=== PATIENT | female | born 1950 | race Caucasian/White ===

== ENCOUNTER → 2017-07-15 11:23 | Outpatient (CLI) | payer OTHER, SELFPAY ==
--- NOTE | 2017-07-15 | DI.MG.S_ITS ---
BILATERAL DIGITAL SCREENING MAMMOGRAM 3D/2D WITH CAD: 07/15/2017 CLINICAL: Routine screening. Comparison is made to exam dated: 02/05/2016 mammogram - [facility]. The tissue of both breasts is extremely dense, which lowers the sensitivity of mammography. Current study was also evaluated with a Computer Aided Detection (CAD) system. No significant masses, calcifications, or other findings are seen in either breast. There has been no significant interval change. IMPRESSION: NEGATIVE There is no mammographic evidence of malignancy. A 1 year screening mammogram is recommended. This exam was interpreted at Station ID: [id number]. NOTE: For mammograms, a report in lay terms will be sent to the patient. Approximately 15% of breast malignancies will not be visualized mammographically. In the management of a palpable breast mass, a negative mammogram must not discourage biopsy of a clinically suspicious lesion. Electronically Signed By: Alyssa lin/norris:07/15/2017 13:46:28 copy to: DEBBIE STEWARD, DEBBIE STEWARD, ph: [phone] letter sent: Normal Exam ACR BI-RADS Category 1: Negative [id number]
== END ==
PROVIDERS: PCP Family Medicine; Visit Provider Family Medicine
DX: Z12.31 Encounter for screening mammogram for malignant neoplasm of breast (principal)
CPT/HCPCS: 77063; 77067

== ENCOUNTER → 2017-07-30 15:55 | Outpatient (CLI) | payer OTHER, SELFPAY ==
--- NOTE | 2017-07-30 | DI.MRI.S_ITS ---
PROCEDURE: MR HIP LT WO CON INDICATIONS: LEFT HIP PAIN TECHNIQUE: Noncontrast coronal T1 spin echo and STIR through the bony pelvis. Coronal and axial T2 fast spin echo with fat saturation, sagittal T1 spin echo, and oblique axial T2 fast spin echo with fat saturation through the hip. COMPARISON: [facility], CR, XR PELVIS WITH LATERAL HIP LEFT, 07/23/2017, 15:12. FINDINGS: Image quality: Excellent. Bones and joints: Bone marrow of the pelvic ring and proximal femurs demonstrate normal signal. No intraosseous lesions or fractures. No avascular necrosis of the femoral heads. There is moderate collar osteophytosis along the bilateral femoral head-neck junctions. A small left hip joint effusion is present. The visualized lower lumbar spine demonstrates tybg-gc-fobeodst degenerative disc disease at the presumed L4-5 level. Tendons and ligaments: The gluteus medius and minimus tendons appear intact, without associated muscle atrophy. The nearby proximal iliotibial band also appears intact. The iliopsoas tendon appears intact, without adjacent bursal fluid collections or evidence for impingement syndrome. The origin of the hamstring tendon is intact at the ischial tuberosity, as well as the associated sacrotuberous ligament. The straight and reflected heads of the rectus femoris muscle origin appear intact, as well as the conjoint tendon. The ligamentum teres appears intact where visualized. Labrum and cartilage: There is irregular degenerative tearing of the superior end anterosuperior labrum. There is moderate cartilage thinning with subchondral edema superiorly. The alpha angle of the femur is within normal limits at less than 55 degrees. Soft tissues: Visualized muscles demonstrate normal bulk and internal signal. Quadratus femoris muscle demonstrates no internal edema to suggest ischiofemoral impingement. The proximal sciatic neurovascular bundle appears normal adjacent to the hamstring tendons. No free pelvic fluid. The urinary bladder is nondistended. There is a pessary present. Visualized bowel loops appear normal in caliber. IMPRESSION: 1. Moderate osteoarthritic changes of the left hip. 2. Small left hip joint effusion. 3. Irregular degenerative tearing of the superior and anterosuperior labrum. Dictated by: Aniket Loco M.D. on 07/30/2017 at 16:44 Approved by: Aniket Loco M.D. on 07/30/2017 at 17:00
== END ==
PROVIDERS: PCP Family Medicine; Visit Provider Orthopaedic Surgery
DX: M25.552 Pain in left hip (principal); M16.12 Unilateral primary osteoarthritis, left hip; M25.452 Effusion, left hip; S73.102A Unspecified sprain of left hip, initial encounter
CPT/HCPCS: 73721

== ENCOUNTER 2017-12-25 06:06 | Inpatient (IN) | payer MEDICARE, OTHER, SELFPAY ==
[2017-12-23 13:18] VITALS: BMI 23.0
[2017-12-25] VITALS (12 sets, daily range): BP systolic 95–135; BP diastolic 57–78; PULSE 12–92; RESP 14–97; TEMP 35.8–36.7; O2SAT 95–100; BMI 22.8
--- NOTE | 2017-12-25 | DI.RAD.S_ITS ---
PROCEDURE: XR HIP W PEL IF DONE LT 2V INDICATIONS: INTRAOPERATIVE LEFT HIP TECHNIQUE: 2 view(s) of the hip acquired. COMPARISON: None. FINDINGS: Normal anatomic alignment immediately after left total hip arthroplasty. IMPRESSION: Expected normal anatomic alignment after left total hip arthroplasty. Dictated by: Jackson Bah M.D. on 12/25/2017 at 11:17 Approved by: Jackson Bah M.D. on 12/25/2017 at 11:17
--- NOTE | 2017-12-25 06:00 | DI.RAD.S_ITS ---
PROCEDURE: XR HIP W PEL IF DONE LT 2V INDICATIONS: post operative left hip TECHNIQUE: AP pelvis and lateral view of the left hip acquired. COMPARISON: [facility], MR, MR HIP LT WO CON, 07/30/2017, 16:15. [facility], CR, XR HIP W PEL IF DONE LT 2V, 12/25/2017, 9:24. FINDINGS: Bones: Patient is status post left hip arthroplasty, with hardware components in expected positions. The hip joint appears congruent. The visualized bony structures appear intact. Soft tissues: Overlying postoperative changes are noted. No suspicious soft tissue densities. IMPRESSION: Left total hip arthroplasty with prosthesis in anatomic alignment. Dictated by: Jasmina Andino M.D. on 12/25/2017 at 13:08 Approved by: Jasmina Andino M.D. on 12/25/2017 at 13:11
[2017-12-25] MEDS: LACTATED RINGERS 1,000 ML 42 ML IV ×2 (07:00→09:24)
[2017-12-25] MEDS: VANCOMYCIN 1,000 MG/200 ML FROZ.PIGGY 200 MG IV (07:02)
[2017-12-25] MEDS: PREGABALIN 75 MG CAPSULE PO (07:03)
[2017-12-25] MEDS: ACETAMINOPHEN 325 MG TABLET 975 MG PO ×3 (07:04→20:04)
[2017-12-25] MEDS: CELECOXIB 200 MG CAPSULE PO (07:04)
--- NOTE | 2017-12-25 07:41 | PM.PREOP ---
Pre-operative Note Interval Note Pre-op Check: Yes History & Physical Reviewed by Physician and Yes Exam Performed Changes: Yes
--- NOTE | 2017-12-25 07:41 | PM.OP.1 ---
Operative Date/Time/Diagnoses Date of procedure: 12/25/17 Time of procedure: 07:59 Pre-op diagnosis: Left hip osteoarthritis Post-op diagnosis: same Procedure & Clinicians Procedure: left total hip arthroplasty Same procedure as scheduled: Yes Indications: The patient has had progressively worsening left hip pain with radiographic changes consistent with arthritis. Non-operative management has failed and the patient has requested total hip replacement. The risks, benefits and alternatives to surgery were discussed with the patient prior to proceeding. Risks discussed included, but were not limited to, failure to relieve pain, leg length discrepancy, dislocation, stiffness, infection, nerve damage, deep venous thrombosis, pulmonary embolism, stroke, coma, heart attack, permanent paralysis and , as well as the potential need for eventual revision of the prosthetic. Surgeon: Fadia Henry District Claims Manager: Jacinta Kee Anesthesia Type: General and Spinal Operative Notes Findings: severe left hip osteoarthritis, adequate stability Specimen(s): none sent Implants & Drains: [employer] R3 50, 50 x32, 32 x -3, size 6 anthology so Applied: catheter Estimated Blood Loss (mL): 250 Blood products transfused: none Procedure in detail: The patient was brought to the operating room. Patient was carefully positioned in the supine position. Time-out was performed and antibiotics were given. Anesthesia was induced. She was positioned in the on the table in order to allow hyperextension of the hip. Bilateral lower extremities were prepped and draped in a standard sterile fashion. An anterior left hip incision was made 1 fingerbreadth lateral to the anterior superior iliac spine and extended distally towards the greater trochanter. Dissection was carried out through skin and subcutaneous tissues. The skin and subcutaneous tissues were carefully injected with Lidocaine with epi. Superficial hemostasis was achieved. The fascia over the tensor fascia anu was defined and incised with a knife. Two Allis clamps were used to grasp the fascia. Tensor fascia anu was retracted laterally. A gelpi retractor was placed. Dissection was carried out down along the neck. The circumflex vessels were carefully identified and cauterized with the Aqua Mantis. There was good visualization of the femoral neck. A Cobra was placed superior to the neck and the gluteus fibers were carefully stripped from that superior aspect of the capsule. A 2nd retractor was placed along the inferior aspect of the neck. The rectus insertion along the capsule was partially released. A 3rd retractor that was then gently placed over the rim of the acetabulum under the rectus. Capsule was carefully incised and released from the intertrochanteric line circumferentially superior to the mid sagittal line and inferiorly to the mid sagittal line until the lesser trochanter was palpable. A tag stitch was placed both in the superior and inferior limb of the capsular insertion. Along the acetabulum capsule was also released up to the mid sagittal 12:00 position. A portion of the labrum was resected. A saw was used to perform an osteotomy at the level of the intertrochanteric line and the junction of the superior femoral neck leaving approximately 1 finger breath of residual inferior neck above the lesser trochanter. A 2nd cut was made along the femoral neck at the base of the head and a napkin ring of neck was removed. Corkscrew was placed in the femoral head and the head was removed without difficulty. Retractors were then repositioned around the acetabulum. Residual labrum was resected and additional osteophytes were removed. A reamer that was 4 mm below the templated size was placed by hand in the acetabulum and it was reamed to centralize the acetabulum. It was then reamed up to 2 under the templated size and fluoroscopy was brought in to confirm the position of the reaming and depth of reaming. I reamed 1 under the anticipated size and touched the rim with line to line reaming. A trial cup was placed and noted that it was appropriately sized and fluoroscopy confirmed position and depth. The component was open and inserted without difficulty fluoroscopic imaging was used to confirm that the cup had been adequately seated and was well positioned. Neutral poly trial liner was placed. The cup was tested and noted to be stable. Attention was then directed to the femur. The femur was gently hyperextended additional capsular release was performed as needed in order to allow adequate visualization of the proximal femur with elevation of the femur. Patient was placed in a hyperextended slightly abducted position with maximum external rotation. Box osteotome was used to check for any residual neck as well as sclerotic bone along the trochanter. [place] pepper was placed in the femur. Additional broaching was performed. Canal finder was used to determine the alignment of the canal and position. Size 1 broach was placed. The canal was then appropriately broached up to the templated size as long as there was adequate stability of the broach and serial advancement of the broach without excessive impingement. Specific attention was directed at avoiding varus attempting to direct the distal aspect of the broach more anteriorly and avoiding excessive anteversion. Trial reduction showed acceptable range of motion, good stability, no posterior impingement, anglican of leg length and appropriate lateral shuck. I also hyperflexed the hip and checked that there was no impingement anteriorly and there was good stability with flexion, abduction and internal rotation. Final neutral poly was placed without difficulty. Marcaine and Exparel were injected.. The stem was placed without difficulty. Repeat trial reduction and x-ray showed acceptable overall position, length, and no evidence of the femoral fracture. Final head was placed. Wound was meticulously irrigated with normal saline. The hip was reduced and additional Exparel and Marcaine were injected. The capsule was closed with interrupted nonabsorbable sutures. The fascia of the tensor was closed with interrupted and running Vicryl. No drain was placed. Any tensor fascia anu muscle that appeared to be contused or injured which was a minimal amount was carefully resected. Capsule around the tensor was injected with Exparel and Marcaine. The skin was closed with barbed stitches for the subcutaneous tissue and skin. We also used surgical glue. The wound was dressed sterilely. Brief Betadine soak was also used and was meticulously irrigated with normal saline. Patient was transferred to recovery room in satisfactory condition. Complications: none Condition: stable Disposition: Acute Care Plan for aftercare: The patient will be maintained on a standard total hip replacement protocol with weight bearing as tolerated and anterior hip precautions. The patient will receive Aspirin and sequential compression devices for DVT prophylaxis. The patient will be discharged home when safe for the home environment.
[2017-12-25] MEDS: CLINDAMYCIN 900 MG/50 ML PIGGYBACK 50 MG IV (08:00)
--- NOTE | 2017-12-25 08:43 | SUR.OPER ---
Supine, head on pillow, torso on pink pad positioner. Iliac crest at flex of foot end of table. Gel roll under operative hip. Both arms secured on arm boards <90 degrees abduction.
[2017-12-25] MEDS: LIDOCAINE 1% W/EPI INJ 20 ML INJ (08:57)
[2017-12-25] MEDS: BUPIVACAINE 0.25% W/ EPI VIAL 50 ML INJ (09:16)
[2017-12-25] MEDS: BUPIVACAINE LIPOSOME 266 MG/20 ML VIAL INJ (09:17)
[2017-12-25] MEDS: POVIDONE-IODINE 15 ML, SODIUM CHLORIDE 0.9% 250 ML TOP (09:18)
[2017-12-25] MEDS: TRANEXAMIC ACID 1,000 MG VIAL 1000 MG INJ ×2 (09:20→11:06)
--- NOTE | 2017-12-25 11:51 | SUR.PHASEI ---
assumed care from daniele butts beoing done, pt arousable and in n o pain, dressing c/d/i.
--- NOTE | 2017-12-25 12:18 | SUR.PHASEI ---
report to ying.
--- NOTE | 2017-12-25 12:29 | SUR.PHASEI ---
pt left in room with ying bhardwaj in stable condition.
[2017-12-25] MEDS: LACTATED RINGERS 1,000 ML 125 ML IV ×2 (13:16→20:40)
--- NOTE | 2017-12-25 14:51 | CM.IDA ---
Discharge Planning/Care Management CM Discharge Assessment Start: 12/25/17 14:40 Freq: Status: Active Protocol: Document 12/25/17 14:40 [place] (Rec: 12/25/17 14:51 [place] [id number]) Discharge Planning Assessment Assigned Auto Garage Mechanic AV Hernández DPOA/Assigned Designee Name Woody Dawn, spouse Contact Information [phone] Advance Directives? Yes Advance Directives on File No History Provided By Patient Family Member Prior Living Arrangements House Household Members spouse Type of transporation used prior to Drives own vehicle admit Independent with ADL's Yes Is patient alert and oriented? Yes Comment More information pending DCP assessment Comment DC needs unknown at this time. Pt in the OR today for hip surgery. This PRINCIPAL DEVELOPER and therapy assessments pending pt's arrival on the medical floor. Review Status In Process
--- NOTE | 2017-12-25 15:50 | PT.IIE ---
Current Diagnoses Unilateral primary osteoarthritis, left hip (12/25/17) Surgery Performed Operation Date: 12/25/17 07:45 Actual Procedures p Total Hip Arthroplasty/Anterior Approach(Left) - Fadia Henry MD Surgical History (Last Updated 12/23/17 @ 14:16 by Elvia Kim RN) H/O colonoscopy with polypectomy (Acute) History of cervical polypectomy (Acute) History of section (Acute) Hx of laparoscopy (Acute) Medical History (Last Updated 12/23/17 @ 14:16 by Elvia Kim RN) Anemia (Acute) Anxiety (Acute) Arthritis (Acute) Asthma (Acute) BCC (basal cell carcinoma), trunk (Acute) Chronic headaches (Acute) Chronic sinusitis (Acute) Concussion (Acute) Fibromyalgia (Acute) H/O hemorrhoids (Acute) H/O insomnia (Acute) [place] (hard of hearing) (Acute) Herpes, vulvar (Acute) History of endometriosis (Acute) Hyperlipidemia (Acute) Low back pain (Acute) Spinal stenosis (Acute) Physical Therapy Inpatient Evaluation/Re-Eval M1 PT/OT-IP Prior Functional Status Start: 12/25/17 17:09 Freq: NEEDED Status: Active Protocol: Document 12/25/17 15:50 RCC (Rec: 12/25/17 17:26 RCC [id number]) Medical Review Prior Functional Status Mobility and Gait indep. gait without device Activities of Daily Living and IADL's indep. I/ADLs Social History Household Members spouse Living Arrangements House Number of Floors (Floors) One Floor Number of Stairs To Enter/Railing? 3 SE without rail Home Environment High Toilet Walk in Shower Tub/Shower Home Equipment Front Wheel Walker Straight Cane Shower Seat without Backrest Additional Social History Comment to assist upon d/c. M2 PT-IP Current Condition Start: 12/25/17 17:09 Freq: NEEDED Status: Active Protocol: Document 12/25/17 15:50 RCC (Rec: 12/25/17 17:26 RCC [id number]) Physical Therapy Current Condition Current Condition Evaluation Date 12/25/17 Treatment Diagnosis L NILESH- anterior approach, impaired mobility Onset Date 12/25/17 Precautions Anterior Hip Precautions No Hip Extension No Hip External Rotation Weight Bearing Status Weight Bearing Status Partial Weight Bearing M3 PT-IP Subjective Start: 12/25/17 17:09 Freq: NEEDED Status: Active Protocol: Document 12/25/17 15:50 RCC (Rec: 12/25/17 17:26 RCC [email or web address]) Subjective Physical Therapy Visit Type Type Initial Evaluation Visit Start Time 15:00 Visit Stop Time 15:50 Total Visit Minutes 50 Notes spouse in room during session Number of TIPPLE ENGINEER Visits 0 Physical Therapy Visit Comments Patient Comments pt denies pain; she wants to be able to go home tomorrow, catch the 12:00 pm gab Lopez tecopa. Patient Goals d/c home tomorrow in a.m. M4 PT-IP Mobility and Gait Start: 12/25/17 17:09 Freq: NEEDED Status: Active Protocol: Document 12/25/17 15:50 RCC (Rec: 12/25/17 17:26 RCC [email or web address]) PT-Bed Mobility Assessment Supine to Sit Supine to Sit Minimal Assistance 1 Person Assistance Sit to Supine Sit to Supine Minimal Assistance 1 Person Assistance Scooting Scooting to Edge of Bed Standby Assistance PT-Transfer Assessment Sit to and From Stand Sit to and from Stand Standby Assistance Equipment Transfer Assistive Device Gait Belt Front Wheeled Walker Transfers Transfer Destination Bed Toilet Transfer Technique Stand Step Pivot Transfer Ability Level of Assist Standby Assistance Gait Assessment Gait Gait Assistance Required: Standby Assistance Distance (Feet) 8 Assistive Devices Assistive Device Gait Belt Front Wheeled Walker Gait Deviations General Gait Pattern Decreased Stride Length Decreased Feet Clearance Step-to Gait Factors Limiting Gait Function Factors Limiting Gait Function Decreased Activity Tolerance Decreased Strength PT-Balance Assessment Sitting Balance and Reactions Static Sitting Balance Ability Good Dynamic Sitting Balance Ability Good Standing Balance and Reactions Static Standing Balance Ability Good Dynamic Standing Balance Ability Fair Device Used FWW M5 PT-IP Objective Assessments Start: 12/25/17 17:09 Freq: NEEDED Status: Active Protocol: Document 12/25/17 15:50 RCC (Rec: 12/25/17 17:26 RCC [id number]) Orientation Orientation/Cognition Level of Alertness Alert Strength Comments Strength Comments no MMT to LLE due to surgery, required Min A for SLR on the LLE. Coordination Assessment Gross Coordination Gross Coordination WNL Sensation Assessment Sensation Gross Sensation WNL Light Touch Intact M6 PT-IP Treatment Start: 12/25/17 17:09 Freq: NEEDED Status: Active Protocol: Document 12/25/17 15:50 RCC (Rec: 12/25/17 17:26 RCC [email or web address]) Physical Therapy Treatment Education Education Provided Precautions Weight Bearing Status Post-Op Packet Safety Other Treatments Other Treatment Performed BP 122/71 supine, 118/73 sitting. Pt had 175 cc urine output with transfer to BSC, and 300 cc emesis (clear liquid)- note left for ASSISTANT CASE MANAGER M7 PT-IP Assessment and Plan Start: 12/25/17 17:09 Freq: NEEDED Status: Active Protocol: Document 12/25/17 15:50 RCC (Rec: 12/25/17 17:26 RCC [id number]) PT Summary Assessment and Plan Potential Rehabilitation Potential Excellent Status of Condition at Evaluation Stable Summary Impairments Pain ROM Strength Balance Bed Mobility Transfers Gait Activity Tolerance Assessment Summary Same day post-op L NILESH with anterior approach. Pt limited this session due to feeling poorly, emesis while using BSC . Pt's BP was stable throughout, no c/o dizziness but does admit to feeling a little poorly. Pt required manual assistance to get in/ out of bed and with LLE management. FWW was sized to fit pt most properly, although still likely taller than ideal for the pt's stature. Expect pt to be able to d/c home when medically stable, but will require further assessment tomorrow on if POD #1 is safe for d/c plan vs. POD #2. Will continue to monitor. Goals Bed Mobility Goal Standby Assistance Transfer Goal Standby Assistance Gait Goal Standby Assistance Gait Distance 150 Other Goals up/down 2 steps with SPC and CGA Days to Meet Goals 2 Frequency of Treatment Frequency Of Treatment Twice a Day Treatment Plan Physical Therapy Treatment Plan Bed Mobility Training Transfer Training Gait Training Therapeutic Exercise Balance Retraining Post Op Education Discharge Planning Hot or Cold Pack Neuromuscular Re-ed Other Recommendations and Next Treatment prog. bed moblity, gait, stair Focus and CG training tomorrow in a .m. for potential d/c to catch 12 a.m. gab Recommendations To Nursing Amount of Assist Needed 1 Person Assist Discharge Recommendations PT Discharge Recommendations Home with Assistance Outpatient PT
[2017-12-25] MEDS: DOCUSATE 100 MG CAPSULE PO (20:04)
[2017-12-25] MEDS: ONDANSETRON 4 MG/2 ML INJ IV (20:04)
[2017-12-25] MEDS: ASPIRIN EC 81 MG TABLET PO (20:04)
[2017-12-26 04:00] VITALS: BP 103/68; PULSE 76; RESP 16; TEMP 36.6; O2SAT 99
[2017-12-26] MEDS: LACTATED RINGERS 1,000 ML 125 ML IV (04:57)
[2017-12-26] MEDS: VANCOMYCIN 1,000 MG/200 ML FROZ.PIGGY 200 MG IV (06:13)
[2017-12-26 06:52] LABS: Hematocrit 31.3 % (36-46)
--- NOTE | 2017-12-26 07:11 | PM.DS.1 ---
History of Present Illness Date Patient Seen: 12/26/17 Chief complaint: [id number] LEFT TOTAL HIP ARTHROPLASTY Narrative: Patient seen bedside s/p L. anterior NILESH POD #1. Patient is doing well, she has not yet worked with PT. Her pain is well controlled. Discharge Providers Date of admission: 12/25/17 06:06 Primary care physician: Aroldo Ly MD Consults: 12/25/17 06:00 Consult to Anesthesiology Routine Comment: Consulting Provider: Anesthesiologist Reason for consultation: Regional block for post operative pain control 12/25/17 12:23 Consult to Discharge Planning Routine Comment: Consult to Physical Therapy Evaluate & Treat Comment: ANTERIOR Physician Instructions: post op NILESH protocol Consult to Respiratory Therapy Evaluate & Treat Comment: Physician Instructions: Evaluate and treat Discharge provider: Jacinta Kee PA-C Discharge Date: 12/26/17 Summary Discharge Diagnosis: Left hip osteoarthritis Hospital Course: Patient was admitted to the hospital s/p L. anterior NILESH on 12/25/17. Patient tolerated the procedure well with no major complications. She was transferred to the acute care floor where she was placed on the standard joint replacement pathway and protocol. She was seen by PT who recommended that she be discharged home with outpatient PT. Patient was stable and ready for discharge on 12/26/17. Status at Discharge Cognitive/behavioral status at discharge: Alert & oriented x3 Functional status at discharge: uses cane/walker Overall status at discharge: patient is progressing back to baseline Time Spent with Patient Less than 30 minutes Exam Vital Signs (past 8 hours): - 12/25/17 23:15 12/26/17 04:00 Temperature 97.6 F 97.9 F Pulse Rate 71 76 Respiratory Rate 16 16 Blood Pressure 106/57 L 103/68 Pulse Oximetry 98 99 Oxygen Delivery Method Room Air Oxygen Flow Rate 0 Narrative Exam Narrative: WDWN NAD A&Ox3. Patient's surgical dressing is CDI with no signs of discharge. Calf is soft and compressible. Minimal erythema and edema surrounding the incision. ROM of the foot and ankle intact. No focal deficits noted. Objective Labs Result Diagrams: 12/26/17 06:30 Labs: Laboratory Results - last 24 hr 12/26/17 06:30 Hgb 11.0 L Hct 31.3 L Discharge Plan Discharge Plan Patient Disposition: Home Discharge Med Rec/Prescriptions Prescriptions: New acetaminophen 325 mg Tablet 975 mg PO TID Qty: 0 RF: 0 aspirin 81 mg Tablet,Delayed Release (Dr/Ec) 81 mg PO BID Qty: 0 RF: 0 docusate sodium 100 mg Capsule 100 mg PO BID Qty: 0 RF: 0 oxycodone 5 mg Tablet 5 mg PO Q4H PRN (Reason: Pain, Moderate (4-6)) Qty: 0 RF: 0 meloxicam [Mobic] 7.5 mg Tablet 15 mg PO 0800 Qty: 0 RF: 0 hydroxyzine pamoate 25 mg Capsule 25 mg PO Q4HR PRN (Reason: Muscle Spasm) Qty: 0 RF: 0 ondansetron HCl [Zofran] 4 mg tablet 4 mg PO Q6-8H PRN (Reason: nausea and vomiting) Qty: 10 RF: 0 Continue estradiol [Estrace] 0.01 % cream 1 gm Vaginal QWEEK Qty: 0 RF: 0 estradiol [Estring] 2 mg (7.5 mcg /24 hour) Ring 1 vag ring VAGINAL [id number] RF: 0 Discontinued ibuprofen 400 mg Tablet 400 mg PO BID RF: 0 Follow up/Referrals: Aroldo Ly MD [Primary Care Provider] - Provider Discharge Instructions Diet: Diet as Tolerated Activity: Weightbearing as tolerated, follow anterior hip precautions, use walker until cleared by PT Cold/Heat Therapy: Apply ice 20 minutes at a time while awake to operative site Skin/Wound/Dressing Care Report to your healthcare provider any signs of infection, such as:: chills, fever, night sweats, increased pain and unusual drainage Dressing: Keep surgical dressing clean, dry, and intact. May shower with dressing in place. Visit Report/Discharge Packet Instructions: DI for Hip Replacement Visit Report Forms: Stroke Signs & Symptoms Discharge Data Primary Care Provider: Aroldo Ly Attending Provider: Fadia Henry Admit Date/Time: 12/25/17 06:06 Discharges patient from system. Discharge Date/Time: 12/26/17 14:32
[2017-12-26] MEDS: ONDANSETRON 4 MG ODT PO ×2 (07:54→11:37)
[2017-12-26 08:00] VITALS: BP 115/67; PULSE 64; RESP 17; TEMP 36.7; O2SAT 100
[2017-12-26 08:30] VITALS: BP 117/64; PULSE 66
[2017-12-26] MEDS: MELOXICAM 7.5 MG TABLET 15 MG PO (09:12)
[2017-12-26] MEDS: ASPIRIN EC 81 MG TABLET PO (09:13)
[2017-12-26] MEDS: DOCUSATE 100 MG CAPSULE PO (09:13)
[2017-12-26] MEDS: ACETAMINOPHEN 325 MG TABLET 975 MG PO ×2 (09:13→14:06)
[2017-12-26 11:14] VITALS: BP 124/65; PULSE 66; RESP 16; TEMP 36.7; O2SAT 98
--- NOTE | 2017-12-26 11:58 | PT.IPTN ---
Current Diagnoses Unilateral primary osteoarthritis, left hip (12/25/17) Surgery Performed Operation Date: 12/25/17 07:45 Actual Procedures p Total Hip Arthroplasty/Anterior Approach(Left) - Fadia Henry MD Physical Therapy Treatment Note M2 PT-IP Current Condition Start: 12/25/17 17:09 Freq: NEEDED Status: Active Protocol: Document 12/25/17 15:50 RCC (Rec: 12/25/17 17:26 RCC [email or web address]) Physical Therapy Current Condition Current Condition Evaluation Date 12/25/17 Treatment Diagnosis L NILESH- anterior approach, impaired mobility Onset Date 12/25/17 Precautions Anterior Hip Precautions No Hip Extension No Hip External Rotation Weight Bearing Status Weight Bearing Status Partial Weight Bearing M3 PT-IP Subjective Start: 12/25/17 17:09 Freq: NEEDED Status: Active Protocol: Document 12/26/17 09:15 GGD (Rec: 12/26/17 11:58 GGD [id number]) Subjective Physical Therapy Visit Type Type Treatment Note Visit Start Time 08:50 Visit Stop Time 09:15 Total Visit Minutes 25 Number of OBSTETRICAL NURSE Visits 1 Physical Therapy Visit Comments Patient Comments Pt states she hope to go home today. Therapy Pain Assessment Pain When Pain Assessed At Rest Pain Present Pain Present Pain Reported Location Left Hip Intensity 3 Scale Used Numeric (1 - 10) M4 PT-IP Mobility and Gait Start: 12/25/17 17:09 Freq: NEEDED Status: Active Protocol: Document 12/26/17 09:15 GGD (Rec: 12/26/17 11:58 GGD [id number]) PT-Bed Mobility Assessment Supine to Sit Supine to Sit Contact Guard Assistance Sit to Supine Sit to Supine Contact Guard Assistance Scooting Scooting to Edge of Bed Standby Assistance PT-Transfer Assessment Sit to and From Stand Sit to and from Stand Contact Guard Assistance Equipment Transfer Assistive Device Gait Belt Front Wheeled Walker Orthotic/Prosthetic Devices or Brace: No Transfers Transfer Destination Bed Transfer Ability Level of Assist Contact Guard Assistance Use of Upper Extremities Comments Mobility Comments BP supine 106/61, sitting 117/ 40, standing 111/54. pt C/O light headiness with standing. M5 PT-IP Objective Assessments Start: 12/25/17 17:09 Freq: NEEDED Status: Active Protocol: Document 12/25/17 15:50 RCC (Rec: 12/25/17 17:26 RCC [email or web address]) Orientation Orientation/Cognition Level of Alertness Alert Strength Comments Strength Comments no MMT to LLE due to surgery, required Min A for SLR on the LLE. Coordination Assessment Gross Coordination Gross Coordination WNL Sensation Assessment Sensation Gross Sensation WNL Light Touch Intact M6 PT-IP Treatment Start: 12/25/17 17:09 Freq: NEEDED Status: Active Protocol: Document 12/26/17 09:15 GGD (Rec: 12/26/17 11:58 GGD [id number]) Physical Therapy Treatment Exercises Exercises Ankle Pumps Education Education Provided Precautions M7 PT-IP Assessment and Plan Start: 12/25/17 17:09 Freq: NEEDED Status: Active Protocol: Document 12/26/17 09:15 GGD (Rec: 12/26/17 11:58 GGD [id number]) PT Summary Assessment and Plan Summary Assessment Summary Pt had increase in light headiness standing. She wasn't safe for transfer or gait dues to low BP. She improved with bed mobility. Pt unable to ambulate or do stair training. Pt should be able to D/C home when medically stable. Frequency of Treatment Frequency Of Treatment Twice a Day Treatment Plan Physical Therapy Treatment Plan Bed Mobility Training Transfer Training Gait Training Therapeutic Exercise Balance Retraining Post Op Education Discharge Planning Hot or Cold Pack Neuromuscular Re-ed Other Recommendations and Next Treatment prog. bed moblity, gait, stair Focus and CG training Discharge Recommendations PT Discharge Recommendations Home with Assistance Outpatient PT
--- NOTE | 2017-12-26 12:53 | PT.IPTN ---
Current Diagnoses Unilateral primary osteoarthritis, left hip (12/25/17) Surgery Performed Operation Date: 12/25/17 07:45 Actual Procedures p Total Hip Arthroplasty/Anterior Approach(Left) - Fadia Henry MD Physical Therapy Treatment Note M2 PT-IP Current Condition Start: 12/25/17 17:09 Freq: NEEDED Status: Active Protocol: Document 12/25/17 15:50 RCC (Rec: 12/25/17 17:26 RCC [email or web address]) Physical Therapy Current Condition Current Condition Evaluation Date 12/25/17 Treatment Diagnosis L NILESH- anterior approach, impaired mobility Onset Date 12/25/17 Precautions Anterior Hip Precautions No Hip Extension No Hip External Rotation Weight Bearing Status Weight Bearing Status Partial Weight Bearing M3 PT-IP Subjective Start: 12/25/17 17:09 Freq: NEEDED Status: Active Protocol: Document 12/26/17 12:47 GGD (Rec: 12/26/17 12:53 GGD [email or web address]) Subjective Physical Therapy Visit Type Type Treatment Note Visit Start Time 12:15 Visit Stop Time 12:45 Total Visit Minutes 30 Number of SENIOR TAX ANALYST Visits 2 Physical Therapy Visit Comments Patient Comments Pt states she is feeling better. Therapy Pain Assessment Pain When Pain Assessed At Rest Pain Present Pain Present Pain Reported Location Left Hip Intensity 2 Scale Used Numeric (1 - 10) M4 PT-IP Mobility and Gait Start: 12/25/17 17:09 Freq: NEEDED Status: Active Protocol: Document 12/26/17 12:47 GGD (Rec: 12/26/17 12:53 GGD [email or web address]) PT-Bed Mobility Assessment Supine to Sit Supine to Sit Contact Guard Assistance Sit to Supine Sit to Supine Contact Guard Assistance Scooting Scooting to Edge of Bed Standby Assistance PT-Transfer Assessment Sit to and From Stand Sit to and from Stand Contact Guard Assistance Equipment Transfer Assistive Device Gait Belt Front Wheeled Walker Orthotic/Prosthetic Devices or Brace: No Transfers Transfer Destination Bed Transfer Ability Level of Assist Contact Guard Assistance Use of Upper Extremities Comments Mobility Comments BP supine 105/63, sitting 111/ 62, standing 107/60. Gait Assessment Gait Gait Assistance Required: Standby Assistance Distance (Feet) 80 Able to Maintain Weight Bearing Status Yes During Gait Assistive Devices Assistive Device Gait Belt Front Wheeled Walker Gait Deviations General Gait Pattern Decreased Stride Length Decreased Feet Clearance Step-to Gait Factors Limiting Gait Function Factors Limiting Gait Function Decreased Strength Pain Stair Climbing Assessment Evaluation Level of Assist On Stairs Minimal Assistance 1 Person Assistance Devices Stair Climbing Assistive Devices Straight Cane Technique/Endurance Stair Climbing Direction Ascend and Descend Stair Climbing Technique Step to Step Number of Steps Climbed 3 Query Text: Stair Climbing Set # Repetitions (reps) 2 Comments Stair Climbing Comments SPC in right hand and hand hold on left hand, family training for stair mobility. M5 PT-IP Objective Assessments Start: 12/25/17 17:09 Freq: NEEDED Status: Active Protocol: Document 12/25/17 15:50 RCC (Rec: 12/25/17 17:26 RCC [email or web address]) Orientation Orientation/Cognition Level of Alertness Alert Strength Comments Strength Comments no MMT to LLE due to surgery, required Min A for SLR on the LLE. Coordination Assessment Gross Coordination Gross Coordination WNL Sensation Assessment Sensation Gross Sensation WNL Light Touch Intact M6 PT-IP Treatment Start: 12/25/17 17:09 Freq: NEEDED Status: Active Protocol: Document 12/26/17 12:47 GGD (Rec: 12/26/17 12:53 GGD [email or web address]) Physical Therapy Treatment Exercises Exercises Ankle Pumps Education Education Provided Precautions M7 PT-IP Assessment and Plan Start: 12/25/17 17:09 Freq: NEEDED Status: Active Protocol: Document 12/26/17 12:47 GGD (Rec: 12/26/17 12:53 GGD [email or web address]) PT Summary Assessment and Plan Summary Assessment Summary Pt improved with mobility. She had no C/O dizziness and stable BP. She was safe and stable with gait. She was safe with stair mobility and family was able to assist safely. Frequency of Treatment Frequency Of Treatment Twice a Day Treatment Plan Other Recommendations and Next Treatment prog. bed moblity, gait, stair Focus and CG training Recommendations To Nursing Amount of Assist Needed 1 Person Assist Discharge Recommendations PT Discharge Recommendations Home with Assistance Outpatient PT
--- NOTE | 2017-12-26 14:31 | PC.NURSE ---
patient tolerated lunch, ate well, drinking fluids well. no nausea when pre-medicated for meal w/ zofran. script for zofran filled by dtr prior to dc home. priority boarding pass provided. cleared by physical therapy. left for w/ dc paperwork and all belongings w/ spouse to drive her home.
--- NOTE | 2017-12-26 14:37 | CM.DPC ---
DCP Cont: Met w/pt and her family at bedside, explained role. Pt is hopeful she can DC home today but had a medical event this morning that made PA/RN question her stability for home. PT= Home w/family and outpt PT. Pt has planned to get home, has spouse and other family/friends available to assist [place] The physical therapist she sees can visit her home for the first visit or two until pt is confident about getting to the clinic. No needs indicated from this DAIRY FEED SALES CONSULTANT. Pt and family appreciative of the visit. P: DC home w/family and outpt PT. Ivon Levy, DAIRY FEED SALES CONSULTANT
== END 2017-12-26 14:32 | disposition home or self-care (01) | DRG 470 ==
PROVIDERS: Admitting Provider Orthopaedic Surgery; PCP Family Medicine; Visit Provider Orthopaedic Surgery
PROC: 0SRB02Z Replacement of Left Hip Joint with Metal on Polyethylene Synthetic Substitute, Open Approach (ICD-10-PCS; CPT 27130; principal; 2017-12-25 07:45)
DX: M16.12 Unilateral primary osteoarthritis, left hip (principal); E78.5 Hyperlipidemia, unspecified; M79.7 Fibromyalgia; Z87.891 Personal history of nicotine dependence
CPT/HCPCS: 36415; 73502; 76001; 85014; 85018; 94762; 97116; 97161; 97530; C1776; C9290; J2250; J2274; J2405; J2704; J3010; J3370

== ENCOUNTER 2017-12-29 21:59 | Observation (INO) | payer MEDICARE, OTHER, SELFPAY ==
[2017-12-25 12:30] VITALS: BMI 22.8
[2017-12-29 22:04] VITALS: BMI 23.4
[2017-12-29 23:40] VITALS: BP 131/74; PULSE 77; RESP 16; TEMP 36.6; O2SAT 98
--- NOTE | 2017-12-29 23:48 | PM.HP.1 ---
History of Present Illness Date Patient Seen: 12/29/17 Time Patient Seen: 23:48 Chief complaint: HYPONATRIEMIA,POSSIBLE POSTOP INFECTION Narrative: 67-year-old female who was transferred from [facility] Emergency Room for hyponatremia and concern of possible postoperative infection. She recently had left total hip arthroplasty by Dr. Henry 5 days ago. She was discharged home. She has been feeling thirsty and was drinking large amount of water. She also has been constipated. She used MiraLax this morning. She drank about 6 court of water within a few hours. She fell ill in the afternoon. She went to her primary care clinic. She was found to have low sodium and potassium. She was airlifted to [facility] Emergency Room. She was found to have sodium of 126. Her potassium was 3.5. She also was noticed to have soft tissue erythema and warmth on the left lateral thigh. There was concern of possible infection. She was transferred to [facility] for further management. Patient denies fevers and chills. She has been feeling thirsty in the past few days. She was drinking large amount of water. Patient History Medical History Anemia (Acute) Anxiety (Acute) Arthritis (Acute) Asthma (Acute) BCC (basal cell carcinoma), trunk (Acute) Chronic headaches (Acute) Chronic sinusitis (Acute) Concussion (Acute) Fibromyalgia (Acute) H/O hemorrhoids (Acute) H/O insomnia (Acute) [place] (hard of hearing) (Acute) Herpes, vulvar (Acute) History of endometriosis (Acute) Hyperlipidemia (Acute) Low back pain (Acute) Spinal stenosis (Acute) Surgical History H/O colonoscopy with polypectomy (Acute) History of cervical polypectomy (Acute) History of section (Acute) Hx of laparoscopy (Acute) Family & Social History Family History: Reviewed 12/29/17 by Zeina Solomon MD Social History: household members spouse Prior Living Arrangements House Safety & Behavioral: Feels Safe in Current Yes Environment Been Physically Hurt or No Threatened By a Person Suicidal Ideation Description None Suicide Plan Description No Plan Tobacco & Substance use: Tobacco type cigarettes Smoking Status Former smoker alcohol intake current alcohol intake frequency holiday/special occasion Substance Use Type does not use Meds Home Medications Medication Instructions Recorded Confirmed Type estradiol [Estrace] 1 gm VAGINAL QWEEK #0 10/04/15 12/29/17 History estradiol [Estring] 1 vag ring VAGINAL [id number] 12/23/17 12/29/17 History aspirin 81 mg PO BID #0 tab 12/26/17 12/29/17 Rx docusate sodium 100 mg PO BID #0 cap 12/26/17 12/29/17 Rx hydroxyzine pamoate 25 mg PO Q4HR PRN #0 cap 12/26/17 12/29/17 Rx meloxicam [Mobic] 15 mg PO 0800 #0 tab 12/26/17 12/29/17 Rx ondansetron HCl [Zofran] 4 mg PO Q6-8H PRN #10 tab 12/26/17 12/29/17 Rx oxycodone 5 mg PO Q4H PRN #0 tab 12/26/17 12/29/17 Rx acetaminophen 500 mg PO Q4H 12/29/17 12/29/17 History Allergies Allergy/AdvReac Type Severity Reaction Status Date / Time Penicillins Allergy Severe Anaphylaxis Verified 12/25/17 06:50 Tetracyclines Allergy Severe RASH/HIVES Verified 12/25/17 06:50 amoxicillin [From AUGMENTIN] Allergy Intermediate RASH/HIVES Verified 12/25/17 06:50 clavulanic acid Allergy Intermediate RASH/HIVES Verified 12/25/17 06:50 [From AUGMENTIN] Review of Systems Constitutional Comments: Denies fevers chills of sweats Cardiovascular Comments: Denies chest pain Respiratory Comments: Denies cough or shortness of breath. Gastrointestinal Gastrointestinal: Reports constipation Comments: No abdominal pain Genitourinary Comments: No dysuria Musculoskeletal Musculoskeletal: Reports arthralgias Exam Narrative Exam Narrative: GENERAL: Middle-aged woman in no acute distress. HEENT: Head normocephalic, atraumatic. Eyes pupils equal round NECK: Supple, no JVD, CHEST: Breath sounds equal bilaterally, no wheezes rales or rhonchi. CARDIAC: Regular rate and rhythm without murmurs, rubs or gallops. ABDOMEN: Soft, nontender. Normoactive bowel sounds all 4 quadrants. No guarding or rebound. EXTREMITIES: Normal range of motion, left lateral hip has mild soft tissue erythema and swelling. It was slightly warm to touch. NEUROLOGICAL: Alert and oriented; Normal muscle strength. SKIN: Warm, dry, no petechiae, no rashes or lesions. Assessment & Plan Plan: Assessment/Plan Narrative: 1. Acute hyponatremia: Likely secondary to the use of MiraLax and excessive free water drinking in the past few days. We will start her on free water restriction. She Has no signs of fluid overload on physical exam. I will start her on normal saline IV at 100 cc an hour. We will recheck her electrolytes in the morning. 2. Hypokalemia: Likely secondary to decreased oral intake and use of laxatives. We will continue monitor. Replace as needed. 3. Recent left total hip arthroplasty: She has mild soft tissue swelling and erythema. She does not have fevers or chills. Her white blood cell count was also normal. She received 1 dose of antibiotics at [facility]. I have low clinical suspicion for postoperative infection. We will continue monitor. Consider orthopedics consultation in the morning for evaluation. Quality VTE Deep Vein Thrombosis/Pulmonary Embolism Present on Admission: No
[2017-12-30 00:30] VITALS: O2SAT 98
[2017-12-30] MEDS: SODIUM CHLORIDE 0.45% 1,000 ML 100 ML IV (00:32)
[2017-12-30] MEDS: ASPIRIN EC 81 MG TABLET PO ×2 (00:41→08:29)
[2017-12-30] MEDS: ACETAMINOPHEN 325 MG TABLET 650 MG PO ×2 (00:41→06:38)
[2017-12-30 03:38] VITALS: BP 128/65; PULSE 77; RESP 18; TEMP 36.6; O2SAT 97
[2017-12-30 06:40] LABS: Add Manual Diff / Slide Review NO; Basophils Percent Auto 0.3 % (0-2); Eosinophils Percent Auto 1.4 % (2-4); Hemoglobin 11.2 g/dL (12.0-16.0); Lymphocytes Percent Auto 19.2 % (25-40); Mean Corpuscular HGB Conc 35.1 % (30-36); Mean Corpuscular Hemoglobin 29.4 PG (26-34); Mean Corpuscular Volume 83.6 fL (80-100); Monocytes Percent Auto 13.6 % (3-14); Neutrophils Absolute Auto 3400 /uL (3000-5900); Neutrophils Percent Auto 65.5 % (50-75); Platelet Count 240 X10^3/uL (150-400); Red Blood Cell Count 3.83 X10^6/uL (4.0-5.2); Red Cell Distribution Width 13.7 % (11.6-14.8); White Blood Cell Count 5.2 X10^3/uL (4.5-11.0)
[2017-12-30 06:41] LABS: Blood Urea Nitrogen 4 mg/dL (7-17); Calcium 8.6 mg/dL (8.4-10.2); Carbon Dioxide 29 mmol/L (22-32); Chloride 103 mmol/L (98-107); Estimated Glomerular Filt Rate > 60.0 mL/min (>60); Glucose 108 mg/dL (80-110); HEMOLYSIS < 15 (0-50); Potassium 4.2 mmol/L (3.4-5.1); Sodium 142 mmol/L (137-145)
--- NOTE | 2017-12-30 07:06 | PC.NURSE ---
12/30 07:06 pt alert and oriented x4, ROSEBUD, vss on RA, pain controlled with 650mg tylenol q6, requesting to get back on anti-inflammatory. walked around [place] twice this shift. States to be feeling much better, fluid restriction maintained this shift.
[2017-12-30 08:25] VITALS: BP 124/53; PULSE 85; RESP 16; TEMP 36.7; O2SAT 99
[2017-12-30] MEDS: DOCUSATE 100 MG CAPSULE PO (08:29)
[2017-12-30 10:11] VITALS: O2SAT 96
--- NOTE | 2017-12-30 10:54 | CM.DANOTE ---
DCP: Case received, EMR reviewed and met with patient. Introduced self and role. DCP template completed with information currently available. Patient is a 67 year old female who admitted yesterday evening, and was transferred via cabulence from [facility] in [place]. Patient was admitted to the care of the hospitalist team. PCP: Dr. Ly. Payer: confirmed: Medicare/[facility]. Patient carries diagnosis of Hyponatremia. Patient presented symptoms of increased thirst. Patient was originally sent to [facility], who transported here to [facility], for patient had recent left total hip arthroplasty done here. Patient alert and oriented. Lives on [address] with spouse. Does use a walker at home, since she had recent surgery. She is hoping to get discharged today, so [place] catch ferry. P: DCP to continue to follow. Patient should be able to return home when her sodium level is stable. Julisa Silvestre RN/Charter Boat Operator
[2017-12-30] MEDS: IBUPROFEN 400 MG TABLET PO (12:24)
--- NOTE | 2017-12-30 12:50 | P.PN_ITS ---
Subjective Date Patient Seen: 12/30/17 Time Patient Seen: 07:48 Interval history: POD #5 status post left total hip arthroplasty done anterior approach with Dr. Henry. Patient was transferred from [facility] Emergency Room for hyponatremia and concern of possible postoperative infection. She was put on IV antibiotics while at [facility]. Patient has not felt febrile. No chills, or drainage from incision. Exam Vital Signs (past 8 hours): - 12/30/17 08:25 12/30/17 10:11 Temperature 98.1 F Pulse Rate 85 Respiratory Rate 16 Blood Pressure 124/53 L Pulse Oximetry 99 96 Oxygen Delivery Method Room Air Narrative Exam Narrative: Patient lying in bed in no acute distress. She is alert and oriented x3. Dressing on left hip is CDI. Dressing removed and incision inspected. There is no signs of redness, wound dehiscence, or infection. Calves are soft, compressible, nontender bilaterally. Sensation intact to light touch throughout bilateral lower extremities. Pulses are symmetrical. Objective Labs Result Diagrams: 12/30/17 06:13 12/30/17 06:13 Labs: Laboratory Results - last 24 hr 12/30/17 12/30/17 06:13 06:13 WBC 5.2 RBC 3.83 L Hgb 11.2 L Hct 32.0 L MCV 83.6 MCH 29.4 MCHC 35.1 RDW 13.7 Plt Count 240 Neut % (Auto) 65.5 Lymph % (Auto) 19.2 L Bibb % (Auto) 13.6 Eos % (Auto) 1.4 L Baso % (Auto) 0.3 Neut # (Auto) 3400 Sodium 142 Potassium 4.2 Chloride 103 Carbon Dioxide 29 BUN 4 L Creatinine 0.50 L Estimated GFR > 60.0 BUN/Creatinine Ratio 8.0 Glucose 108 Calcium 8.6 Assessment & Plan Post-op (1) Hyponatremia: Current Visit: Yes Status: Acute (2) S/P total hip arthroplasty: Problem details: She is to continue her anterior hip precautions. Continue with physical therapy. There are no concerns for postoperative infection at this time. She will follow up with our office as scheduled. Current Visit: Yes Status: Acute Quality VTE Deep Vein Thrombosis/Pulmonary Embolism Present on Admission: No
--- NOTE | 2017-12-30 13:30 | P.CONS_ITS ---
History of Present Illness Date Patient Seen: 12/30/17 Time Patient Seen: 13:28 Chief complaint: HYPONATRIEMIA,POSSIBLE POSTOP INFECTION Reason for consult: Status post total hip arthroplasty readmitted for hyponatremia Narrative: Patient who is status post a total hip arthroplasty done on the 25 of December readmitted due to hyponatremia. Patient is not having any issues in regards to the hip. [facility] Medical History Anemia (Acute) Anxiety (Acute) Arthritis (Acute) Asthma (Acute) BCC (basal cell carcinoma), trunk (Acute) Chronic headaches (Acute) Chronic sinusitis (Acute) Concussion (Acute) Fibromyalgia (Acute) H/O hemorrhoids (Acute) H/O insomnia (Acute) [place] (hard of hearing) (Acute) Herpes, vulvar (Acute) History of endometriosis (Acute) Hyperlipidemia (Acute) Low back pain (Acute) Spinal stenosis (Acute) Surgical History H/O colonoscopy with polypectomy (Acute) History of cervical polypectomy (Acute) History of section (Acute) Hx of laparoscopy (Acute) Family History: Reviewed 12/29/17 by Zeina Solomon MD Social History household members: spouse Smoking Status: Former smoker alcohol intake: current Meds Home Medications Medication Instructions Recorded Confirmed Type estradiol [Estrace] 1 gm VAGINAL QWEEK #0 10/04/15 12/29/17 History estradiol [Estring] 1 vag ring VAGINAL [id number] 12/23/17 12/29/17 History aspirin 81 mg PO BID #0 tab 12/26/17 12/29/17 Rx docusate sodium 100 mg PO BID #0 cap 12/26/17 12/29/17 Rx hydroxyzine pamoate 25 mg PO Q4HR PRN #0 cap 12/26/17 12/29/17 Rx meloxicam [Mobic] 15 mg PO 0800 #0 tab 12/26/17 12/29/17 Rx ondansetron HCl [Zofran] 4 mg PO Q6-8H PRN #10 tab 12/26/17 12/29/17 Rx oxycodone 5 mg PO Q4H PRN #0 tab 12/26/17 12/29/17 Rx acetaminophen 500 mg PO Q4H 12/29/17 12/29/17 History Allergies Allergy/AdvReac Type Severity Reaction Status Date / Time Penicillins Allergy Severe Anaphylaxis Verified 12/25/17 06:50 Tetracyclines Allergy Severe RASH/HIVES Verified 12/25/17 06:50 amoxicillin [From AUGMENTIN] Allergy Intermediate RASH/HIVES Verified 12/25/17 06:50 clavulanic acid Allergy Intermediate RASH/HIVES Verified 12/25/17 06:50 [From AUGMENTIN] Exam Vital Signs (past 8 hours): - 12/30/17 08:25 12/30/17 10:11 Temperature 98.1 F Pulse Rate 85 Respiratory Rate 16 Blood Pressure 124/53 L Pulse Oximetry 99 96 Oxygen Delivery Method Room Air Narrative Exam Narrative: Patient's incision is healing well. No sign of any wound dehiscence. No sign of any wound infection. No sign of any postsurgical complications. Objective Labs Result Diagrams: 12/30/17 06:13 12/30/17 06:13 Labs: Laboratory Results - last 24 hr 12/30/17 12/30/17 06:13 06:13 WBC 5.2 RBC 3.83 L Hgb 11.2 L Hct 32.0 L MCV 83.6 MCH 29.4 MCHC 35.1 RDW 13.7 Plt Count 240 Neut % (Auto) 65.5 Lymph % (Auto) 19.2 L [place] % (Auto) 13.6 Eos % (Auto) 1.4 L Baso % (Auto) 0.3 Neut # (Auto) 3400 Sodium 142 Potassium 4.2 Chloride 103 Carbon Dioxide 29 BUN 4 L Creatinine 0.50 L Estimated GFR > 60.0 BUN/Creatinine Ratio 8.0 Glucose 108 Calcium 8.6 Assessment & Plan Plan: Assessment/Plan Narrative: No sign of any wound issues at this point. No sign of any postoperative infection. Once patient is cleared by medicine she can be discharged back home.
--- NOTE | 2017-12-30 18:01 | P.DS_ITS ---
History of Present Illness Chief complaint: HYPONATRIEMIA,POSSIBLE POSTOP INFECTION Narrative: 67-year-old female who was transferred from [facility] Emergency Room for hyponatremia and concern of possible postoperative infection. She recently had left total hip arthroplasty by Dr. Henry 5 days ago. She was discharged home. She has been feeling thirsty and was drinking large amount of water. She also has been constipated. She used MiraLax this morning. She drank about 6 court of water within a few hours. She fell ill in the afternoon. She went to her primary care clinic. She was found to have low sodium and potassium. She was airlifted to [facility] Emergency Room. She was found to have sodium of 126. Her potassium was 3.5. She also was noticed to have soft tissue erythema and warmth on the left lateral thigh. There was concern of possible infection. She was transferred to [facility] for further management. Patient denies fevers and chills. She has been feeling thirsty in the past few days. She was drinking large amount of water. Discharge Providers Date of admission: 12/29/17 21:59 Primary care physician: Aroldo Ly MD Discharge provider: Mushtaq Bello MD Discharge Date: 12/30/17 Summary Discharge Diagnosis: 1. Acute hyponatremia secondary to self-induced water overload 2. Acute hypokalemia, corrected 3. Recent left total hip arthroplasty Hospital Course: Patient presented with symptomatic acute hyponatremia. She was oral fluid restricted and started on hydration with normal saline. Hyponatremia corrected. Symptomatically she is much better. Basically she was drinking a lot of water and eating very little due to nausea. She is advised as to maintain about 1500 cc daily fluid intake but only 50% water and 50% other fluids. Also to consume general diet and not to overly restrict her salt in diet. There is some concern of erythema on the left hip surgery site but it appears to be typical postop swelling and inflammation. There is no fever or other indication of postop infection. She is discharged back home in good condition. Status at Discharge Functional status at discharge: independent ambulation Overall status at discharge: patient is back to baseline Time Spent with Patient Greater than 30 minutes Exam Vital Signs (past 8 hours): - 12/30/17 10:11 Pulse Oximetry 96 Oxygen Delivery Method Room Air Objective Labs Result Diagrams: 12/30/17 06:13 12/30/17 06:13 Labs: Laboratory Results - last 24 hr 12/30/17 12/30/17 06:13 06:13 WBC 5.2 RBC 3.83 L Hgb 11.2 L Hct 32.0 L MCV 83.6 MCH 29.4 MCHC 35.1 RDW 13.7 Plt Count 240 Neut % (Auto) 65.5 Lymph % (Auto) 19.2 L [place] % (Auto) 13.6 Eos % (Auto) 1.4 L Baso % (Auto) 0.3 Neut # (Auto) 3400 Sodium 142 Potassium 4.2 Chloride 103 Carbon Dioxide 29 BUN 4 L Creatinine 0.50 L Estimated GFR > 60.0 BUN/Creatinine Ratio 8.0 Glucose 108 Calcium 8.6 Discharge Plan Discharge Plan Patient Disposition: Home Discharge Med Rec/Prescriptions Prescriptions: Continue estradiol [Estrace] 0.01 % cream 1 gm Vaginal QWEEK Qty: 0 RF: 0 estradiol [Estring] 2 mg (7.5 mcg /24 hour) Ring 1 vag ring VAGINAL [id number] RF: 0 aspirin 81 mg Tablet,Delayed Release (Dr/Ec) 81 mg PO BID Qty: 0 RF: 0 docusate sodium 100 mg Capsule 100 mg PO BID Qty: 0 RF: 0 oxycodone 5 mg Tablet 5 mg PO Q4H PRN (Reason: Pain, Moderate (4-6)) Qty: 0 RF: 0 meloxicam [Mobic] 7.5 mg Tablet 15 mg PO 0800 Qty: 0 RF: 0 hydroxyzine pamoate 25 mg Capsule 25 mg PO Q4HR PRN (Reason: Muscle Spasm) Qty: 0 RF: 0 ondansetron HCl [Zofran] 4 mg tablet 4 mg PO Q6-8H PRN (Reason: nausea and vomiting) Qty: 10 RF: 0 acetaminophen 325 mg tablet 500 mg PO Q4H RF: 0 Follow up/Referrals: Aroldo Ly MD [Primary Care Provider] - Provider Discharge Instructions Diet: Regular Visit Report/Discharge Packet Instructions: Hyponatremia-Adult, Ibuprofen Visit Report Forms: Stroke Signs & Symptoms Discharge Data Primary Care Provider: Aroldo Ly Attending Provider: Zeina Solomon Admit Date/Time: 12/29/17 21:59 Discharge Interventions Interventions: Discharge assessment Last Done: 12/30/17 13:16 Discharges patient from system. Discharge Date/Time: 12/30/17 14:35 Quality VTE Deep Vein Thrombosis/Pulmonary Embolism Present on Admission: No
== END 2017-12-30 14:35 | disposition home or self-care (01) ==
PROVIDERS: Admitting Provider Internal Medicine; PCP Family Medicine; Visit Provider Internal Medicine
DX: E87.1 Hypo-osmolality and hyponatremia (principal); E86.0 Dehydration; E87.6 Hypokalemia; Z96.642 Presence of left artificial hip joint
CPT/HCPCS: 36415; 80048; 85025; G0378; G0379; J7050

== ENCOUNTER → 2018-12-10 11:24 | Outpatient (CLI) | payer MEDICARE, OTHER, SELFPAY ==
--- NOTE | 2018-12-10 | DI.MG.S_ITS ---
BILATERAL DIGITAL SCREENING MAMMOGRAM 3D/2D WITH CAD: 12/10/2018 CLINICAL: Routine screening. Comparison is made to exams dated: 07/15/2017 mammogram - [facility], 02/05/2016 mammogram, and 01/24/2015 mammogram - [facility]. The tissue of both breasts is extremely dense, which lowers the sensitivity of mammography. Current study was also evaluated with a Computer Aided Detection (CAD) system. No significant masses, calcifications, or other findings are seen in either breast. There has been no significant interval change. IMPRESSION: NEGATIVE There is no mammographic evidence of malignancy. A 1 year screening mammogram is recommended. This exam was interpreted at Station ID: [id number]. NOTE: For mammograms, a report in lay terms will be sent to the patient. Approximately 15% of breast malignancies will not be visualized mammographically. In the management of a palpable breast mass, a negative mammogram must not discourage biopsy of a clinically suspicious lesion. Electronically Signed By: Aniket boyle/norris:12/10/2018 14:24:13 letter sent: Normal Exam ACR BI-RADS Category 1: Negative 3341F
== END ==
PROVIDERS: PCP Family Medicine; Visit Provider Family Medicine
DX: Z12.31 Encounter for screening mammogram for malignant neoplasm of breast (principal)
CPT/HCPCS: 77063; 77067

== ENCOUNTER → 2020-04-12 10:29 | Outpatient (CLI) | payer MEDICARE, OTHER, SELFPAY ==
--- NOTE | 2020-04-12 | DI.MG.S_ITS ---
BILATERAL DIGITAL SCREENING MAMMOGRAM 3D/2D WITH CAD: 04/12/2020 CLINICAL: Routine screening. Comparison is made to exams dated: 12/10/2018 mammogram, 07/15/2017 mammogram - [facility], and 02/05/2016 mammogram - [facility]. The tissue of both breasts is extremely dense, which lowers the sensitivity of mammography. Current study was also evaluated with a Computer Aided Detection (CAD) system. No significant masses, calcifications, or other findings are seen in either breast. There has been no significant interval change. IMPRESSION: NEGATIVE There is no mammographic evidence of malignancy. A 1 year screening mammogram is recommended. This exam was interpreted at Station ID: [id number]. NOTE: For mammograms, a report in lay terms will be sent to the patient. Approximately 15% of breast malignancies will not be visualized mammographically. In the management of a palpable breast mass, a negative mammogram must not discourage biopsy of a clinically suspicious lesion. Electronically Signed By: Seb javed/norris:04/12/2020 10:59:24 copy to: Nadeen Foley MD, [facility], ph: [phone] letter sent: Normal Exam ACR BI-RADS Category 1: Negative 3341F
== END ==
PROVIDERS: PCP Family Medicine; Referring Provider Family Medicine; Visit Provider Family Medicine
DX: Z12.31 Encounter for screening mammogram for malignant neoplasm of breast (principal)
CPT/HCPCS: 77063; 77067

== ENCOUNTER → 2021-09-05 07:41 | Outpatient (CLI) | payer MEDICARE, OTHER, SELFPAY ==
[2021-08-23 11:31] VITALS: BMI 23.4
--- NOTE | 2021-09-05 | DI.MG.S_ITS ---
BILATERAL DIGITAL SCREENING MAMMOGRAM 3D/2D WITH CAD: 09/05/2021 CLINICAL: Routine screening. Family history of breast cancer. Comparison is made to exams dated: 04/12/2020 mammogram, 12/10/2018 mammogram, and 07/15/2017 mammogram - [facility]. The tissue of both breasts is extremely dense, which lowers the sensitivity of mammography. Current study was also evaluated with a Computer Aided Detection (CAD) system. No significant masses, calcifications, or other findings are seen in either breast. There has been no significant interval change. IMPRESSION: NEGATIVE There is no mammographic evidence of malignancy. A 1 year screening mammogram is recommended. Based on the Tyrer Cuzick model (a risk assessment model) the patient's lifetime risk is 12.8% and her 10 year risk is 7.2%. According to the ACR, ACS, and NCCN guidelines, an annual breast MRI exam along with mammogram is recommended if the patient's lifetime risk is 20% or greater. This exam was interpreted at Station ID: [id number]. NOTE: For mammograms, a report in lay terms will be sent to the patient. Approximately 15% of breast malignancies will not be visualized mammographically. In the management of a palpable breast mass, a negative mammogram must not discourage biopsy of a clinically suspicious lesion. Electronically Signed By: Jonathan dunne/norris:09/05/2021 09:23:43 copy to: Nadeen Foley MD, [facility], ph: [phone] letter sent: Normal Exam ACR BI-RADS Category 1: Negative 3341F
== END ==
PROVIDERS: PCP Family Medicine
DX: Z12.31 Encounter for screening mammogram for malignant neoplasm of breast (principal); Z80.3 Family history of malignant neoplasm of breast
CPT/HCPCS: 77063; 77067

== ENCOUNTER 2021-12-05 14:39 | Emergency (ER) | payer MEDICARE, OTHER, SELFPAY ==
[2021-08-23 11:31] VITALS: BMI 23.4
[2021-12-05 14:55] VITALS: BP 144/67; PULSE 88; RESP 18; TEMP 36.7; O2SAT 98; BMI 23.6
--- NOTE | 2021-12-05 15:03 | DI.US.S_ITS ---
PROCEDURE: US PERIPH VENOUS LOW EXTREM RT INDICATIONS: localized pain post surgery TECHNIQUE: Real-time imaging, as well as color and pulse Doppler interrogation, were performed of the lower extremity deep veins from the inguinal ligament to the popliteal fossa. COMPARISON: None. FINDINGS: The common femoral, femoral and popliteal veins are normally compressible, and free of intraluminal thrombus. Color and pulse Doppler demonstrate normal phasic intraluminal flow. There is normal augmentation response to distal compression maneuver. IMPRESSION: No evidence of right lower extremity deep venous thrombosis. Dictated by: Seb Draper M.D. on 12/05/2021 at 17:17 Approved by: Seb Draper M.D. on 12/05/2021 at 17:18
[2021-12-05 15:43] LABS: Add Manual Diff / Slide Review NO; Basophils Absolute Auto 0 /uL (0-100); Basophils Percent Auto 0.3 % (0-2); Eosinophils Absolute Auto 0 /uL (0-450); Eosinophils Percent Auto 0.9 % (2-4); Hematocrit 30.5 % (36-46); Hemoglobin 10.7 g/dL (12.0-16.0); Lymphocytes Absolute Auto 800 /uL (1100-4500); Lymphocytes Percent Auto 15.3 % (25-40); Mean Corpuscular HGB Conc 35.1 % (30-36); Mean Corpuscular Hemoglobin 30.9 PG (26-34); Mean Corpuscular Volume 87.9 fL (80-100); Monocytes Absolute Auto 700 /uL (0-900); Monocytes Percent Auto 12.5 % (3-14); Neutrophils Absolute Auto 3700 /uL (1500-7000); Platelet Count 282 X10^3/uL (150-400); Red Blood Cell Count 3.47 X10^6/uL (4.0-5.2); Red Cell Distribution Width 13.6 % (11.6-14.8); White Blood Cell Count 5.3 X10^3/uL (4.5-11.0)
[2021-12-05 15:52] LABS: Alanine Aminotransferase 33 IU/L (<35); Albumin 3.9 g/dL (3.5-5.0); Albumin Globulin Ratio 1.2 (1.0-2.8); Alkaline Phosphatase 85 U/L (38-126); Aspartate Aminotransferase 40 IU/L (14-36); BUN Creatinine Ratio 31.7 (6-22); Bilirubin Total 0.6 mg/dL (0.2-1.3); Blood Urea Nitrogen 13 mg/dL (7-17); Calcium 8.6 mg/dL (8.4-10.2); Carbon Dioxide 24 mmol/L (22-32); Chloride 96 mmol/L (98-107); Estimated Glomerular Filt Rate > 60 mL/min (>60); Globulin 3.3 g/dL (1.7-4.1); Glucose 103 mg/dL (80-110); HEMOLYSIS 25 (0-50); Potassium 4.1 mmol/L (3.4-5.1); Sodium 130 mmol/L (137-145); Total Protein 7.2 g/dL (6.3-8.2)
[2021-12-05 16:43] LABS: Appearance Urine UA CLEAR; Bilirubin Urine UA NEGATIVE (NEGATIVE); Color Urine UA YELLOW; Glucose Urine UA NEGATIVE (Negative); Ketones Urine UA NEGATIVE (NEGATIVE); Leukocyte Esterase Urine UA NEGATIVE (NEGATIVE); Nitrite Urine UA NEGATIVE (Negative); Occult Blood Urine UA NEGATIVE (Negative); Protein Urine UA NEGATIVE (Negative); Specific Gravity Urine UA <=1.005 (1.000-1.035); Urobilinogen Urine UA 0.2 E.U./dL (0.2)
[2021-12-05 16:49] LABS: Bacteria Urine None Seen; Culture Indicated Urine Cult Not Indicated; RBC Urine None Seen (0-5/HPF); Urine Comments Microscopic Normal; WBC Urine None Seen (0-5/HPF); pH Urine UA 6.5 (4.5-8.0)
--- NOTE | 2021-12-05 20:59 | ED_ITS ---
HPI - Extremity Injury (Lower) General Chief Complaint: Extremity Injury, Lower Stated Complaint: Possible DVT- ref by Dr López Time Seen by Provider: 12/05/21 20:58 Source: patient Mode of arrival: Ambulatory History of Present Illness HPI Narrative: Patient is a 71-year-old female history right hip replacement done at her [place] last week. She has been doing well. However the last 3-4 days she has had some increased weakness nausea. She has had some right leg pain and swelling. It is recommended that she come to the ER for further evaluation and possible DVT workup. 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 She feels like some of her symptoms are similar. She denies any fever or chills although she has had weakness. She has had some low blood pressure reading at home and affect doctors office of the blood pressure reading here is within normal limits. Related Data Home Medications Medication Instructions Recorded Confirmed estradiol 0.01% (0.1 mg/gram) 1 gm vaginal QWEEK ##0 10/04/15 12/29/17 vaginal cream (Estrace) estradiol 2 mg (7.5 mcg/24 hour) 1 vag ring vaginal [id number] 12/23/17 12/29/17 vaginal ring (Estring) acetaminophen 325 mg tablet 500 mg PO Q4H 12/29/17 12/29/17 Previous Rx's Medication Instructions Recorded aspirin 81 mg tablet,delayed 81 mg PO BID #0 tabs 12/26/17 release docusate sodium 100 mg capsule 100 mg PO BID #0 caps 12/26/17 hydroxyzine pamoate 25 mg capsule 25 mg PO Q4HR PRN Muscle Spasm #0 12/26/17 caps meloxicam 7.5 mg tablet (Mobic) 15 mg PO 0800 #0 tabs 12/26/17 ondansetron HCl 4 mg tablet 4 mg PO Q6-8H PRN nausea and 12/26/17 (Zofran) vomiting #10 tabs oxycodone 5 mg tablet 5 mg PO Q4H PRN Pain, Moderate 12/26/17 (4-6) #0 tabs Allergies Allergy/AdvReac Type Severity Reaction Status Date / Time Penicillins Allergy Severe Anaphylaxis Verified 12/25/17 06:50 Tetracyclines Allergy Severe RASH/HIVES Verified 12/25/17 06:50 amoxicillin [From AUGMENTIN] Allergy Intermediate RASH/HIVES Verified 12/25/17 06:50 clavulanic acid Allergy Intermediate RASH/HIVES Verified 12/25/17 06:50 [From AUGMENTIN] Review of Systems Review of Systems Narrative: GENERAL: Denies chills, fatigue, malaise, fever, sweats, travel HEENT: Denies sinus pain, ear pain, sore throat, difficulty swallowing, neck pain RESPIRATORY: Denies dyspnea, cough, wheezing, hemoptysis, sputum. CARDIOVASCULAR: Denies chest pain, palpitations, orthopnea, edema GASTROINTESTINAL: Denies nausea, vomiting, abdominal pain, diarrhea, constipation, melena. : Denies dysuria, frequency, incontinence, hematuria, urinary retention, flank pain. MUSCULOSKELETAL: See HPI SKIN: No rash, no erythema, no pruritus NEUROLOGIC: Denies weakness, dizziness, headache, numbness, change in speech, confusion PSYCHIATRIC: No concerning psychosocial issues. 12 point review of systems is negative except for those stated above and HPI Patient History Medical History (Updated 12/05/21 @ 22:46 by Maura Stone DO) Anemia Anxiety Arthritis Asthma BCC (basal cell carcinoma), trunk Chronic headaches Chronic sinusitis Concussion Fibromyalgia H/O hemorrhoids H/O insomnia Herpes, vulvar History of endometriosis [place] (hard of hearing) Hyperlipidemia Low back pain Spinal stenosis Surgical History (Updated 12/05/21 @ 22:46 by Maura Stone DO) H/O colonoscopy with polypectomy History of cervical polypectomy History of section Hx of laparoscopy Status post delivery Status post laparoscopy Family History Brother Cancer Father Cancer Heart disease Arthritis Mother Hypertension High cholesterol Stroke Sister Age: 69 Mental health problem Social History household members: spouse Smoking Status: Former smoker alcohol intake: current Smoking Status: Former smoker alcohol intake frequency: holidays/special occasions only Substance Use Type: does not use Exam Initial Vital Signs Initial Vital Signs: Vital Signs Temperature 98.1 F 12/05/21 14:55 Pulse Rate 88 12/05/21 14:55 Respiratory Rate 18 12/05/21 14:55 Blood Pressure 144/67 H 12/05/21 14:55 Pulse Oximetry 98 12/05/21 14:55 Oxygen Delivery Method 12/05/21 14:55 GENERAL: Alert pleasant 71-year-old female and in no acute distress. HEENT: Head atraumatic,EOMI, pupils reactive, face symmetric, moist mucous membranes CARDIOVASCULAR: Regular rate and rhythm without murmurs, rubs or gallops. RESPIRATORY: Breath sounds equal bilaterally, no wheezes rales or rhonchi. ABDOMEN: Soft, nontender. Normoactive bowel sounds all 4 quadrants. No guarding or rebound. EXTREMITIES: Normal range of motion, no clubbing or edema. Neurovascularly intact NEUROLOGICAL: Alert and oriented x4.Normal gait and speech. SKIN: Warm, dry, no laceration, no petechiae, no rashes or lesions. Course Orders Ordered: Discontinued Medications Acetaminophen (Acetaminophen 325 Mg Tablet) 650 mg PO NOW ONE Stop: 12/05/21 21:19 Last Admin: 12/05/21 21:42 Dose: Not Given Documented By: NR Sodium Chloride (Normal Saline 0.9%) 1,000 mls @ 1,000 mls/hr IV BOLUS ONE Stop: 12/05/21 22:15 Last Infusion: 12/05/21 23:01 Dose: 0 mls/hr Documented By: Admin: 12/05/21 21:35 Dose: 1,000 mls/hr Documented By: DO Vital Signs Vital signs: Vital Signs - 8 hr 12/05/21 23:04 Pulse Rate 82 Respiratory Rate 16 Blood Pressure 136/63 Pulse Oximetry 99 Oxygen Delivery Method Room Air MDM - Extremity Injury (Lower) Lab Data Result diagrams: 12/05/21 15:20 12/05/21 15:20 Labs: Lab Results 12/05/21 12/05/21 12/05/21 Range/Units 15:20 15:20 15:25 WBC 5.3 (4.5-11.0) X10^3/uL RBC 3.47 L (4.0-5.2) X10^6/uL Hgb 10.7 L (12.0-16.0) g/dL Hct 30.5 L (36-46) % MCV 87.9 (80-100) fL MCH 30.9 (26-34) PG MCHC 35.1 (30-36) % RDW 13.6 (11.6-14.8) % Plt Count 282 (150-400) X10^3/uL Neut % (Auto) 71.0 (50-75) % Lymph % (Auto) 15.3 L (25-40) % [place] % (Auto) 12.5 (3-14) % Eos % (Auto) 0.9 L (2-4) % Baso % (Auto) 0.3 (0-2) % Neut # (Auto) 3700 (0743-7775) /uL Lymph # (Auto) 800 L (0417-9728) /uL [place] # (Auto) 700 (0-900) /uL Eos # (Auto) 0 (0-450) /uL Baso # (Auto) 0 (0-100) /uL Sodium 130 L (137-145) mmol/L Potassium 4.1 (3.4-5.1) mmol/L Chloride 96 L (98-107) mmol/L Carbon Dioxide 24 (22-32) mmol/L BUN 13 (7-17) mg/dL Creatinine 0.41 L (0.52-1.04) mg/dL Estimated GFR > 60 (>60) mL/min BUN/Creatinine Ratio 31.7 H (6-22) Glucose 103 (80-110) mg/dL Calcium 8.6 (8.4-10.2) mg/dL Total Bilirubin 0.6 (0.2-1.3) mg/dL AST 40 H (14-36) IU/L ALT 33 (<35) IU/L Alkaline Phosphatase 85 (38-126) U/L Total Protein 7.2 (6.3-8.2) g/dL Albumin 3.9 (3.5-5.0) g/dL Globulin 3.3 (1.7-4.1) g/dL Albumin/Globulin Ratio 1.2 (1.0-2.8) Urine Color Yellow Urine Appearance Clear Urine pH 6.5 (4.5-8.0) Ur Specific [place] <=1.005 (1.000-1.035) Urine Protein Negative (Negative) Urine Glucose (UA) Negative (Negative) g/dL Urine Ketones Negative (NEGATIVE) Urine Occult Blood Negative (Negative) Urine Nitrate Negative (Negative) Urine Bilirubin Negative (NEGATIVE) Urine Urobilinogen 0.2 (0.2) E.U./dL Ur Leukocyte Esterase Negative (NEGATIVE) Urine RBC None seen (0-5/HPF) Urine WBC None seen (0-5/HPF) Urine Bacteria None seen (None) Ur Culture Indicated? Cult not indicated Micro UA Comment Microscopic normal Imaging Data US - DVT: Radiologist's Impression: Signed Patient: Cloe Dawn MR#: [id number] : 1950 Acct:[id number] Age/Sex: 71 / F Date of Service: 12/05/21 Loc: ED Accession Number: [id number] ?? Procedure: US periph venous low extrem rt Ordering Provider: Svitlana Llamas D.O. PROCEDURE:? US PERIPH VENOUS LOW EXTREM RT ? INDICATIONS:? localized pain post surgery ? TECHNIQUE:? Real-time imaging, as well as color and pulse Doppler interrogation, were performed of the lower extremity deep veins from the inguinal ligament to the popliteal fossa.? ? COMPARISON:? None. ? FINDINGS:? The common femoral, femoral and popliteal veins are normally compressible, and free of intraluminal thrombus.? Color and pulse Doppler demonstrate normal phasic intraluminal flow.? There is normal augmentation response to distal compression maneuver. ? ? IMPRESSION:? No evidence of right lower extremity deep venous thrombosis. ? ? Dictated by: Seb Draper M.D. on 12/05/2021 at 17:17 ? ? [facility] Narrative Medical decision making narrative: Patient says that she had SIADH however reports state that she had excessive ashley er intake. Today her is a is slightly low 130 not overly concerning. Nares no sign of infection or DVT at this time. sHe is ambulatory with her walker in the ED. she has been eating food. At this time no indication to stay in hospital she is feeling significantly better Discharge Plan Departure Patient Disposition: Home Clinical Impression: Hyponatremia, S/P total hip arthroplasty Instructions: DI for Hyponatremia Activity Restrictions/Additional Instructions: *You have been diagnosed with low-sodium *What to do: Sodium today is not dangerously low. At this time I recommend increasing fluid intake. Continue postoperative instructions. No evidence of blood clot. *Continue to take medications as directed *Follow up with your primary care provider in 2-3 days or call [phone] *Return to ER if you should have increase weakness numbness tingling nausea vo miting or any new, worsening or concerning symptoms Prescriptions: No Action estradiol [Estrace] 0.01 % cream 1 gm Vaginal QWEEK Qty: 0 estradiol [Estring] 2 mg (7.5 mcg /24 hour) Ring 1 vag ring VAGINAL [id number] aspirin 81 mg Tablet,Delayed Release (Dr/Ec) 81 mg PO BID Qty: 0 0RF docusate sodium 100 mg Capsule 100 mg PO BID Qty: 0 0RF oxycodone 5 mg Tablet 5 mg PO Q4H PRN (Reason: Pain, Moderate (4-6)) Qty: 0 0RF meloxicam [Mobic] 7.5 mg Tablet 15 mg PO 0800 Qty: 0 0RF hydroxyzine pamoate 25 mg Capsule 25 mg PO Q4HR PRN (Reason: Muscle Spasm) Qty: 0 0RF ondansetron HCl [Zofran] 4 mg tablet 4 mg PO Q6-8H PRN (Reason: nausea and vomiting) Qty: 10 0RF acetaminophen 325 mg tablet 500 mg PO Q4H Referrals: Aroldo Ly MD [Primary Care Provider] - Visit Report Forms: Patient Portal/API
[2021-12-05] MEDS: SODIUM CHLORIDE 0.9% 1,000 ML 1000 ML IV (21:35)
[2021-12-05 23:04] VITALS: BP 136/63; PULSE 82; RESP 16; O2SAT 99
== END 2021-12-05 23:05 | disposition home or self-care (01) ==
PROVIDERS: Emergency Medicine; Emergency Provider Emergency Medicine; PCP Family Medicine
DX: E87.1 Hypo-osmolality and hyponatremia (principal); Z96.641 Presence of right artificial hip joint
CPT/HCPCS: 80053; 81001; 85025; 93971; 99284

== ENCOUNTER → 2023-04-30 08:05 | Outpatient (CLI) | payer MEDICARE, OTHER, SELFPAY ==
[2021-08-23 11:31] VITALS: BMI 23.4
--- NOTE | 2023-04-30 08:07 | DI.MG.S_ITS ---
BILATERAL DIGITAL SCREENING MAMMOGRAM 3D/2D WITH CAD: 04/30/2023 CLINICAL: Routine screening. Family history of breast cancer. Comparison is made to exams dated: 09/05/2021 mammogram, 04/12/2020 mammogram, and 12/10/2018 mammogram - [facility]. Both breasts are extremely dense, which lowers the sensitivity of mammography (category d />75% glandular tissue). Current study was also evaluated with a Computer Aided Detection (CAD) system. No significant masses, calcifications, or other findings are seen in either breast. There has been no significant interval change. IMPRESSION: NEGATIVE There is no mammographic evidence of malignancy. A 1 year screening mammogram is recommended. Based on the Tyrer Cuzick model (a risk assessment model) the patient's lifetime risk is 11.3% and her 10 year risk is 7.2%. According to the ACR, ACS, and NCCN guidelines, an annual breast MRI exam along with mammogram is recommended if the patient's lifetime risk is 20% or greater. This exam was interpreted at Station ID: [id number]. NOTE: For mammograms, a report in lay terms will be sent to the patient. Approximately 15% of breast malignancies will not be visualized mammographically. In the management of a palpable breast mass, a negative mammogram must not discourage biopsy of a clinically suspicious lesion. Electronically Signed By: Ruben vaughan/norris:04/30/2023 13:00:34 copy to: Nadeen Foley MD, [facility], ph: [phone] letter sent: Normal Exam ACR BI-RADS Category 1: Negative 3341F
== END ==
LOC: MAMMO 08:06
PROVIDERS: PCP Family Medicine; Referring Provider Family Medicine; Visit Provider Family Medicine
DX: Z12.31 Encounter for screening mammogram for malignant neoplasm of breast (principal); Z80.3 Family history of malignant neoplasm of breast; R92.343 Mammographic extreme density, bilateral breasts
CPT/HCPCS: 77063; 77067

== ENCOUNTER → 2024-06-17 08:13 | Outpatient (CLI) | payer MEDICARE, OTHER, SELFPAY ==
[2021-08-23 11:31] VITALS: BMI 23.4
--- NOTE | 2024-06-17 08:14 | DI.MG.S_ITS ---
MM screening mammo BI: 06/17/2024. BI-RADS: 1 CLINICAL: 73-year old female for bilateral screening mammogram. Tyrer-Cuzick lifetime risk of 7.9%. No personal or first-degree family history of breast cancer. PRIOR EXAMS 04/30/2023, 09/05/2021, 04/12/2020, 12/10/2018, 07/15/2017. MAMMOGRAPHY TECHNIQUE: 2D and 3D (tomosynthesis) digital mammographic views obtained, with additional images as needed for full coverage. Current study was also evaluated with a Computer Aided Detection (CAD) system. DENSITY D. The breasts are extremely dense, which lowers the sensitivity of mammography. MAMMOGRAPHY FINDINGS Bilateral: No suspicious mass, asymmetry, microcalcification, or other abnormality seen. IMPRESSION: * No evidence of malignancy. RECOMMENDATIONS Bilateral * Annual screening mammography. OVERALL ASSESSMENT CATEGORY BI-RADS-1: Negative. The [employer] recommends annual screening mammography beginning at age 40 for women with average risk of breast cancer. ELECTRONICALLY SIGNED: Madelyn Oshea M.D. on 06/18/2024 at 08:11:19 AM PT Interpreting Station ID: [id number]
== END ==
PROVIDERS: PCP Family Medicine; Referring Provider Family Medicine; Visit Provider Family Medicine
DX: Z12.31 Encounter for screening mammogram for malignant neoplasm of breast (principal); R92.343 Mammographic extreme density, bilateral breasts
CPT/HCPCS: 77063; 77067